=== PATIENT | female | born 1975 ===

== ENCOUNTER → 2023-11-29 15:23 | Outpatient (REF) | payer OTHER, SELFPAY | LOC: WDC 15:23 | PROVIDERS: ATTENDING PHYSICIAN Internal Medicine | DX: Z12.31 Encounter for screening mammogram for malignant neoplasm of breast (principal) | CPT/HCPCS: 77063; 77067 ==

== ENCOUNTER → 2024-12-02 10:45 | Outpatient (REF) | payer BC, SELFPAY | LOC: WDC 10:45 | DX: Z12.31 Encounter for screening mammogram for malignant neoplasm of breast (principal) | CPT/HCPCS: 77063; 77067 ==